=== PATIENT | male | born 1970 | race Caucasian/White ===

== ENCOUNTER 2016-06-15 07:23 | Emergency (ER) | payer OTHER ==
[2016-06-15] MEDS ORDERED: LIDOCAINE 1% INJ-PF (10 MG/ML) 30 ML SDV INJ ONE (07:58)
[2016-06-15] MEDS ORDERED: MORPHINE SULFATE 10 MG/ML INJ IM ONE (08:23)
--- NOTE | 2016-06-15 08:25 | ER Document Report ---
ED General - General Chief Complaint: Abscess Stated Complaint: BODY PAIN Mode of Arrival: Ambulatory Information source: Patient Notes: 45-year-old male presents with abscess of one week duration on his back associated with fever and body aches. Patient has had similar episode once in the past. TRAVEL OUTSIDE OF THE [place] IN LAST 30 DAYS: No - HPI Onset: Last week Onset/Duration: Persistent Quality of pain: Achy Severity: Mild Pain Level: 1 Associated symptoms: Body/muscle aches, Fever Exacerbated by: Denies Relieved by: Denies Similar symptoms previously: Yes Recently seen / treated by doctor: No - Related Data Allergies/Adverse Reactions: No Known Allergies Allergy (Verified 06/15/16 07:33) Past Medical History - Social History Smoking Status: Never Smoker Cigarette use (# per day): No Chew tobacco use (# tins/day): No Smoking Education Provided: No Frequency of alcohol use: None Drug Abuse: None Family History: Reviewed & Not Pertinent Patient has suicidal ideation: No Patient has homicidal ideation: No Endocrine Medical History: Reports: Hx Diabetes Mellitus Type 2 Renal/ Medical History: Denies: Hx Peritoneal Dialysis Skin Medical History: Reports Hx MRSA - Back Infectious Medical History: Reports: Hx MRSA - (Back) Review of Systems - Review of Systems Notes: REVIEW OF SYSTEMS: CONSTITUTIONAL : Denies fever, chills, or sweats. Denies recent illness. EENT: Denies eye, ear, throat, or mouth pain or symptoms. Denies nasal or sinus congestion or discharge. Denies throat, tongue, or mouth swelling or difficulty swallowing. CARDIOVASCULAR: Denies chest pain. Denies palpitations or racing or irregular heart beat. Denies ankle edema. RESPIRATORY: Denies cough, cold, or chest congestion. Denies shortness of breath, difficulty breathing, or wheezing. GASTROINTESTINAL: Denies abdominal pain or distention. Denies nausea, vomiting , or diarrhea. Denies blood in vomitus, stools, or per rectum. Denies black, tarry stools. Denies constipation. GENITOURINARY: Denies difficulty urinating, painful urination, burning, frequency, blood in urine, or discharge. MUSCULOSKELETAL: Denies back or neck pain or stiffness. Denies joint pain or swelling. SKIN: Admits to abscess HEMATOLOGIC : Denies easy bruising or bleeding. LYMPHATIC: Denies swollen, enlarged glands. NEUROLOGICAL: Denies confusion or altered mental status. Denies passing out or loss of consciousness. Denies dizziness or lightheadedness. Denies headache. Denies weakness or paralysis or loss of use of either side. Denies problems with gait or speech. Denies sensory loss, numbness, or tingling. Denies seizures. PSYCHIATRIC: Denies anxiety or stress. Denies depression, suicidal ideation, or homicidal ideation. ALL OTHER SYSTEMS REVIEWED AND NEGATIVE. Dictation was performed using [employer] voice recognition software PHYSICAL EXAMINATION: GENERAL: Well-appearing, well-nourished and in no acute distress. HEAD: Atraumatic, normocephalic. EYES: Pupils equal round and reactive to light, extraocular movements intact, sclera anicteric, conjunctiva are normal. ENT: Nares patent, oropharynx clear without exudates. Moist mucous membranes. NECK: Normal range of motion, supple without lymphadenopathy LUNGS: Breath sounds clear to auscultation bilaterally and equal. No wheezes rales or rhonchi. HEART: Regular rate and rhythm without murmurs ABDOMEN: Soft, nontender, nondistended abdomen. No guarding, no rebound. No masses appreciated. Musculoskeletal: Normal range of motion, no pitting or edema. No cyanosis. NEUROLOGICAL: Cranial nerves grossly intact. Normal speech, normal gait. Normal sensory, motor exams PSYCH: Normal mood, normal affect. SKIN: 9 x 8 cm abscess midback fluctuant pustular Physical Exam - Vital signs Vitals: Temp Pulse Resp BP Pulse Ox 97.5 F 108 H 20 126/91 H 100 06/15/16 07:29 06/15/16 07:29 06/15/16 07:29 06/15/16 07:29 06/15/16 07:29 Course - Re-evaluation Re-evalutation: 06/15/16 08:25 Patient will be given pain control will be anesthetized incised I expect large amount of pus drainage 06/15/16 09:42 - Vital Signs Vital signs: Temp Pulse Resp BP Pulse Ox 97.5 F 108 H 20 126/91 H 100 06/15/16 07:29 06/15/16 07:29 06/15/16 07:29 06/15/16 07:29 06/15/16 07:29 Procedures - Incision and Drainage Posterior Back Time completed: 09:40 Type: Complex Anesthetic type: 1% Lidocaine mL's of anesthetic: 10 Blade size: 11 Incision Method: Incision made by scalpel Amount/type of drainage: large amount of pus Discharge - Discharge Clinical Impression: Abscess Back pain Qualifiers: Back pain location: low back pain Chronicity: acute Back pain laterality: midline Sciatica presence: without sciatica Qualified Code(s): M54.5 - Low back pain Condition: Stable Disposition: HOME, SELF-CARE Instructions: Abscess ([facility]) Additional Instructions: Return in 3 days for reevaluation or abscess or sooner if there is any worsening symptoms or concerns Prescriptions: Cephalexin Monohydrate [Keflex 500 mg Capsule] 500 mg PO QID #40 capsule Oxycodone HCl/Acetaminophen [Percocet 5-325 mg Tablet] 1 - 2 tab PO Q4H PRN #15 tablet PRN Reason: Sulfamethoxazole/Trimethoprim [Bactrim Ds Tablet] 2 each PO BID #40 tablet
[2016-06-15 10:16] VITALS: BP 118/79
== END 2016-06-15 10:00 | disposition home or self-care (01) ==
LOC: ER 07:23
PROC: 0H96XZZ Drainage of Back Skin, External Approach (ICD-10-PCS; principal; 2016-06-15)
DX: L02.212 Cutaneous abscess of back [any part, except buttock and flank] (principal); M79.1 Myalgia; R50.9 Fever, unspecified; E11.9 Type 2 diabetes mellitus without complications; Z86.14 Personal history of Methicillin resistant Staphylococcus aureus infection
CPT/HCPCS: 99283; 96372; 10061; J2270

== ENCOUNTER 2016-06-18 16:33 | Emergency (ER) | payer OTHER ==
--- NOTE | 2016-06-18 18:46 | ER Document Report ---
ED Medical Screen (RME) - General Stated Complaint: RECHECK BACK PACKING Notes: seen on june 15 for abscess, here for recheck taking abx as prescribed, pain under control denies fevers, chills dressing CDI, underneath the dressing, site is erythematous with drainage and odor. Will need irrigaton and repacking I have greeted and performed a rapid initial assessment of this patient. A comprehensive ED assessment and evaluation of the patient, analysis of test results and completion of the medical decision making process will be conducted by additional ED providers. TRAVEL OUTSIDE OF THE [place] IN LAST 30 DAYS: No - Related Data Allergies/Adverse Reactions: No Known Allergies Allergy (Verified 06/15/16 07:33) Past Medical History Endocrine Medical History: Reports: Hx Diabetes Mellitus Type 2 Renal/ Medical History: Denies: Hx Peritoneal Dialysis Skin Medical History: Reports Hx MRSA - Back Infectious Medical History: Reports: Hx MRSA - (Back) Past Surgical History: Reports: Hx Cholecystectomy - Immunizations Hx Diphtheria, Pertussis, Tetanus Vaccination: Yes Physical Exam - Vital signs Vitals: Temp Pulse Resp BP Pulse Ox 98.2 F 100 14 120/74 100 06/18/16 17:25 06/18/16 17:25 06/18/16 17:25 06/18/16 17:25 06/18/16 17:25 Course - Vital Signs Vital signs: Temp Pulse Resp BP Pulse Ox 98.2 F 100 14 120/74 100 06/18/16 17:25 06/18/16 17:25 06/18/16 17:25 06/18/16 17:25 06/18/16 17:25
--- NOTE | 2016-06-18 19:55 | ER Document Report ---
HPI - HPI Patient complains to provider of: wound recheck Onset: Other - 3 days ago Onset/Duration: Better Quality of pain: Achy Pain Level: Denies Context: Patient states he had an abscess to his back for over 2 weeks and had an incision and drainage 3 days ago. Patient is here to have the wound rechecked and have packing removed. Patient denies any fever. Patient states that his blood sugar at home today was 108. Patient states that his pain has resolved except for whenever he lies on his back and the abscess is slightly tender then. Associated Symptoms: Other - Wound recheck Exacerbated by: Supine Relieved by: Sitting Similar symptoms previously: Yes Recently seen / treated by doctor: Yes - ROS ROS below otherwise negative: Yes Systems Reviewed and Negative: Yes All other systems reviewed and negative - CONSTITUTIONAL Constitutional: DENIES: Fever, Chills - NEURO Neurology: DENIES: Weakness - GASTROINTESTINAL Gastrointestinal: DENIES: Nausea, Patient vomiting - DERM Skin Color: Normal Notes: Abscess Past Medical History - General Information source: Patient - Social History Smoking Status: Never Smoker Chew tobacco use (# tins/day): No Frequency of alcohol use: None Drug Abuse: None Occupation: retail Lives with: Alone Family History: Reviewed & Not Pertinent Patient has suicidal ideation: No Patient has homicidal ideation: No Endocrine Medical History: Reports: Hx Diabetes Mellitus Type 2 Renal/ Medical History: Denies: Hx Peritoneal Dialysis Skin Medical History: Reports Hx MRSA - Back Infectious Medical History: Reports: Hx MRSA - (Back) Past Surgical History: Reports: Hx Cholecystectomy - Immunizations Hx Diphtheria, Pertussis, Tetanus Vaccination: Yes Vertical Provider Document - CONSTITUTIONAL Agree With Documented VS: Yes Exam Limitations: No Limitations General Appearance: WD/WN, No Apparent Distress - INFECTION CONTROL TRAVEL OUTSIDE OF THE [place] IN LAST 30 DAYS: No - HEENT HEENT: Atraumatic, Normocephalic - NECK Neck: Normal Inspection - RESPIRATORY Respiratory: Breath Sounds Normal, No Respiratory Distress O2 Sat by Pulse Oximetry: 100 - CARDIOVASCULAR Cardiovascular: Regular Rate, Regular Rhythm - MUSCULOSKELETAL/EXTREMETIES Musculoskeletal/Extremeties: MAEW - NEURO Level of Consciousness: Awake, Alert, Appropriate - DERM Integumentary: Warm, Dry, Abscess - Resolving abscess to right thoracolumbar area, area nontender Course - Re-evaluation Re-evalutation: 06/18/16 19:54 Packing removed from abscess. Patient reports immediate pain relief. Abscess appears to be resolving, no purulent drainage noted to wound bed - Vital Signs Vital signs: Temp Pulse Resp BP Pulse Ox 98.2 F 100 14 120/74 100 06/18/16 17:25 06/18/16 17:25 06/18/16 17:25 06/18/16 17:25 06/18/16 17:25 Discharge - Discharge Clinical Impression: Abscess, Encounter for wound re-check Condition: Stable Disposition: HOME, SELF-CARE Instructions: Abscess ([facility]), Dressing Instructions for Open Wounds ([facility]), Trimethoprim-Sulfa ([facility]), Cephalexin ([facility]) Additional Instructions: Return immediately for any new or worsening symptoms Followup with your primary care provider, call tomorrow to make a followup appointment Continue to take her antibiotics as previously prescribed Keep wound covered as it continues to heal Referrals: [facility] [Provider Group] - Follow up as needed
[2016-06-18 20:39] VITALS: BP 118/81
== END 2016-06-18 20:40 | disposition home or self-care (01) ==
LOC: ER 16:33
DX: Z48.01 Encounter for change or removal of surgical wound dressing (principal); L02.212 Cutaneous abscess of back [any part, except buttock and flank]; E11.9 Type 2 diabetes mellitus without complications; Z86.14 Personal history of Methicillin resistant Staphylococcus aureus infection
CPT/HCPCS: 99283

== ENCOUNTER 2017-10-08 09:29 | Inpatient (IN) | payer SELFPAY ==
[2017-10-08] MEDS ORDERED: SILVER SULFADIAZINE 1% CREAM 400 GM TP ONE (09:48)
--- NOTE | 2017-10-08 09:53 | ER Document Report ---
ED Medical Screen (RME) - General Chief Complaint: Sunburn Stated Complaint: SUNBURN TO LEGS/FEET/FACE Time Seen by Provider: 10/08/17 09:37 Mode of Arrival: Ambulatory Information source: Patient Notes: 46-year-old male presents to ED for second-degree sunburns to bilateral leg since Saturday. Patient has a large weeping blister on his left foot and several small weeping blisters to both legs. He also has stage I sunburn to his face. It is a type II diabetic. He has no sensation no pain to the sunburn is able to slap the sunburn. He does have some mild peripheral neuropathy in the feet but states he has never been able to smack his feet like this when he sunburn. He states he usually blood sugar runs between 180-200 but it has been over 300 in the past but that was after eating a breakfast of eggs and toast sausage and cade. He states he has not eaten anything since last night. I consulted Dr. Erwin who stated that this patient needs to be already made given IV fluids run some labs and reevaluated. I have greeted and performed a rapid initial assessment of this patient. A comprehensive ED assessment and evaluation of the patient, analysis of test results and completion of medical decision making process will be conducted by an additional ED providers. TRAVEL OUTSIDE OF THE [place] IN LAST 30 DAYS: No - Related Data Allergies/Adverse Reactions: No Known Allergies Allergy (Verified 10/08/17 09:29) Past Medical History - Social History Frequency of alcohol use: None Drug Abuse: None Endocrine Medical History: Reports: Hx Diabetes Mellitus Type 2 Renal/ Medical History: Denies: Hx Peritoneal Dialysis Skin Medical History: Reports Hx MRSA - Back Infectious Medical History: Reports: Hx MRSA - (Back) Past Surgical History: Reports: Hx Cholecystectomy - Immunizations Hx Diphtheria, Pertussis, Tetanus Vaccination: Yes Physical Exam - Vital signs Vitals: Temp Pulse Resp BP Pulse Ox 98.5 F 101 H 17 129/84 H 100 10/08/17 09:32 10/08/17 09:32 10/08/17 09:32 10/08/17 09:32 10/08/17 09:32 Course - Vital Signs Vital signs: Temp Pulse Resp BP Pulse Ox 98.5 F 101 H 17 129/84 H 100 10/08/17 09:32 10/08/17 09:32 10/08/17 09:32 10/08/17 09:32 10/08/17 09:32
[2017-10-08] MEDS: NORMAL SALINE 1000 ML 1,000 ML IV PRN ×4 (10:01→22:24)
[2017-10-08] MEDS ORDERED: INSULIN REG, HUMAN 100 UNIT/ML 3 ML VIAL (PYX) SUBCUT ONE (10:04)
--- NOTE | 2017-10-08 10:10 | ER Document Report ---
ED General - General Chief Complaint: Sunburn Stated Complaint: SUNBURN TO LEGS/FEET/FACE Time Seen by Provider: 10/08/17 09:37 Mode of Arrival: Ambulatory Notes: Chief complaint: Sunburn History of complain:( obtained from----patient) 46 years old male presents today with sunburn happened 3 days ago. He was sitting outside in the sun for about 5 hours now has sunburn all the way from the lower part of the thigh to the toe. Denies any fever chills or other constitutional symptoms. He is diabetic taking metformin Onset: 3 days ago Duration: Last few days Severity: Severe burn Quality: Burning Context: Sunburn sun exposure Exacerbating factor and relieving factors: Noncontributory REVIEW OF SYSTEMS: CONSTITUTIONAL : Denies fever, chills, or sweats. Denies recent illness. EENT: Denies eye, ear, throat, or mouth pain or symptoms. Denies nasal or sinus congestion or discharge. Denies throat, tongue, or mouth swelling or difficulty swallowing. CARDIOVASCULAR: Denies chest pain. Denies palpitations or racing or irregular heart beat. Denies ankle edema. RESPIRATORY: Denies cough, cold, or chest congestion. Denies shortness of breath, difficulty breathing, or wheezing. GASTROINTESTINAL: Denies distention. Denies nausea, vomiting, or diarrhea. Denies blood in vomitus, stools, or per rectum. Denies black, tarry stools. Denies constipation. GENITOURINARY: Denies difficulty urinating, painful urination, burning, frequency, blood in urine, or discharge. FEMALE GENITOURINARY: Denies vaginal bleeding, heavy or abnormal periods, irregular periods. Denies vaginal discharge or odor. MUSCULOSKELETAL: Denies back or neck pain or stiffness. Denies joint pain or swelling. SKIN: Denies rash, lesions or sores. HEMATOLOGIC : Denies easy bruising or bleeding. LYMPHATIC: Denies swollen, enlarged glands. NEUROLOGICAL: Denies confusion or altered mental status. Denies passing out or loss of consciousness. Denies dizziness or lightheadedness. Denies headache. Denies weakness or paralysis or loss of use of either side. Denies problems with gait or speech. Denies sensory loss, numbness, or tingling. Denies seizures. PSYCHIATRIC: Denies anxiety or stress. Denies depression, suicidal ideation, or homicidal ideation. ALL OTHER SYSTEMS REVIEWED AND NEGATIVE. PHYSICAL EXAMINATION: GENERAL: Well-appearing, well-nourished and in no acute distress. HEAD: Atraumatic, normocephalic. EYES: Pupils equal round and reactive to light, extraocular movements intact, conjunctiva are normal. ENT: Nares patent, oropharynx clear without exudates. Moist mucous membranes. NECK: Normal range of motion, supple without lymphadenopathy LUNGS: Breath sounds clear to auscultation bilaterally and equal. No wheezes rales or rhonchi. HEART: Regular rate and rhythm without murmurs ABDOMEN: Soft, nontender, nondistended abdomen. No guarding, no rebound. No masses appreciated. Examination of genitals-deferred Musculoskeletal: Normal range of motion, no pitting or edema. No cyanosis. NEUROLOGICAL: Cranial nerves grossly intact. Normal speech, normal gait. Normal sensory, motor exams PSYCH: Normal mood, normal affect. SKIN: Skin starting from shorts nathanael to all the way to the toes has diffuse erythema which is deep in color, it is warm and tender to touch. Left foot on the extensor surface has peeling of the skin with second-degree burn noted. Rest of first-degree soriano. Dictation was performed using [employer] voice recognition software TRAVEL OUTSIDE OF THE [place] IN LAST 30 DAYS: No - HPI Patient complains to provider of: Dictated Onset/Duration: Gradual Severity: Moderate Notes: Dictated - Related Data Allergies/Adverse Reactions: No Known Allergies Allergy (Verified 10/08/17 09:29) Past Medical History - General Information source: Patient - Social History Smoking Status: Never Smoker Frequency of alcohol use: None Drug Abuse: None Family History: Reviewed & Not Pertinent Patient has suicidal ideation: No Patient has homicidal ideation: No Endocrine Medical History: Reports: Hx Diabetes Mellitus Type 2 Renal/ Medical History: Denies: Hx Peritoneal Dialysis Skin Medical History: Reports Hx MRSA - Back Infectious Medical History: Reports: Hx MRSA - (Back) Past Surgical History: Reports: Hx Cholecystectomy - Immunizations Hx Diphtheria, Pertussis, Tetanus Vaccination: Yes Review of Systems - Review of Systems Notes: Dictated Physical Exam - Vital signs Vitals: Temp Pulse Resp BP Pulse Ox 98.5 F 101 H 17 129/84 H 100 10/08/17 09:32 10/08/17 09:32 10/08/17 09:32 10/08/17 09:32 10/08/17 09:32 - Notes Notes: Dictated Course - Re-evaluation Re-evalutation: 10/08/17 11:44 Given Ancef and discussed the case with the hospitalist and being admitted to the hospital. - Vital Signs Vital signs: Temp Pulse Resp BP Pulse Ox 98.5 F 101 H 17 129/84 H 100 10/08/17 09:32 10/08/17 09:32 10/08/17 09:32 10/08/17 09:32 10/08/17 09:32 - Laboratory Result Diagrams: 10/08/17 10:15 10/08/17 10:15 Laboratory results interpreted by me: 10/08/17 10/08/17 10/08/17 09:45 10:15 10:15 WBC 3.7 L Plt Count 144 L Glucose 319 H POC Glucose 345 H AST 16 L Urine Protein Urine Glucose (UA) Urine Blood 10/08/17 10:15 WBC Plt Count Glucose POC Glucose AST Urine Protein 30 H Urine Glucose (UA) >=500 H Urine Blood SMALL H Discharge - Discharge Clinical Impression: Cellulitis Qualifiers: Site of cellulitis: extremity Site of cellulitis of extremity: lower extremity Laterality: left Qualified Code(s): L03.116 - Cellulitis of left lower limb Uncontrolled diabetes mellitus Qualifiers: Diabetes mellitus type: type 2 Diabetes mellitus penitentiary insulin use: without penitentiary use Diabetes mellitus complication status: with unspecified complications Qualified Code(s): E11.8 - Type 2 diabetes mellitus with unspecified complications; E11.65 - Type 2 diabetes mellitus with hyperglycemia ; E11.65 - Type 2 diabetes mellitus with hyperglycemia; E11.65 - Type 2 diabetes mellitus with hyperglycemia; E11.65 - Type 2 diabetes mellitus with hyperglycemia Condition: Fair Disposition: ADMITTED INPATIENT Admitting Provider: Hospitalist Unit Admitted: Telemetry Referrals: POLLY KUO MD [Primary Care Provider] - Follow up as needed
[2017-10-08 10:33] LABS: ABSOLUTE EOSINOPHILS # (AUTO) 0.1 10^3/uL (0.0-0.6); ABSOLUTE LYMPHOCYTES (AUTO) 1.1 10^3/uL (0.5-4.7); ABSOLUTE MONOCYTES (AUTO) 0.4 10^3/uL (0.1-1.4); BASOPHILS % (AUTO) 0.6 % (0-2); EOSINOPHILS % (AUTO) 3.1 % (0-6); HEMATOCRIT 41.2 % (37.9-51.0); HEMOGLOBIN 14.2 g/dL (13.5-17.0); LYMPHOCYTES % (AUTO) 31.2 % (13-45); MEAN CORPUSCULAR HEMOGLOBIN 28.1 pg (27.0-33.4); MEAN CORPUSCULAR HGB CONC 34.6 g/dL (32.0-36.0); MEAN CORPUSCULAR VOLUME 81 fl (80-97); PLATELET COUNT 144 10^3/uL (150-450); RED BLOOD COUNT 5.07 10^6/uL (4.35-5.55); RED CELL DISTRIBUTION WIDTH 13.1 % (11.5-14.0); SEGMENTED NEUTROPHILS % (AUTO) 55.1 % (42-78); TOTAL CELLS COUNTED % (AUTO) 100 %; VENOUS BLOOD BASE EXCESS -0.2 mmol/L; VENOUS BLOOD HCO3 25.6 mmol/L (20-32); VENOUS BLOOD PCO2 46.1 mmHg (35-63); VENOUS BLOOD PH 7.36 (7.30-7.42); WHITE BLOOD COUNT 3.7 10^3/uL (4.0-10.5)
[2017-10-08 10:50] LABS: ALANINE AMINOTRANSFERASE 36 U/L (21-72); ALBUMIN 3.9 g/dL (3.5-5.0); ALKALINE PHOSPHATASE 61 U/L (38-126); ANION GAP 10 (5-19); ASPARTATE AMINO TRANSFERASE 16 U/L (17-59); BILIRUBIN,DIRECT 0.3 mg/dL (0.0-0.4); BILIRUBIN,TOTAL 0.7 mg/dL (0.2-1.3); BLOOD UREA NITROGEN 12 mg/dL (7-20); CALCIUM 9.1 mg/dL (8.4-10.2); CARBON DIOXIDE 26 mmol/L (22-30); CHLORIDE 104 mmol/L (98-107); GLUCOSE 319 mg/dL (75-110); POTASSIUM 4.4 mmol/L (3.6-5.0); SODIUM 140.4 mmol/L (137-145); TOTAL PROTEIN 6.5 g/dL (6.3-8.2)
[2017-10-08 10:57] LABS: APPEARANCE,URINE CLEAR; BILIRUBIN,URINE NEGATIVE (NEGATIVE); COLOR,URINE YELLOW; GLUCOSE, URINE >=500 mg/dL (NEGATIVE); KETONES,URINE NEGATIVE (NEGATIVE); LEUKOCYTE ESTERASE,URINE NEGATIVE (NEGATIVE); NITRITE,URINE NEGATIVE (NEGATIVE); PROTEIN,URINE 30 mg/dL (NEGATIVE); URINE SPECIFIC GRAVITY 1.028; UROBILINOGEN,URINE NEGATIVE mg/dL (<2.0)
[2017-10-08] MEDS ORDERED: CEFAZOLIN 2 GM/D5W RTU 2 GM/50 ML RTUPB IV SCH (12:00)
[2017-10-08] MEDS ORDERED: GLUCAGON,HUMAN RECOMB 1 MG INJ IM PRN (12:52)
[2017-10-08] MEDS ORDERED: DEXTROSE 40% GEL 15 GM TUBE PO PRN ×2 (12:52)
[2017-10-08] MEDS ORDERED: DEXTROSE 50%-WATER 25 GM/50 ML DISP.SYRIN IV PRN ×2 (12:52)
[2017-10-08] MEDS ORDERED: ENOXAPARIN SODIUM INJ 40 MG/0.4 ML DISP.SYRIN SUBCUT ONE (13:30)
[2017-10-08] MEDS: INSULIN LISPRO 100 UNIT/ML 3 ML VIAL SUBCUT PRN ×2 (16:21→22:23)
[2017-10-08] MEDS: AMPICILLIN SODIUM/SULBACTAM NA 3 GM in NORMAL SALINE 100 ML IV SCH ×2 (17:41→23:08)
[2017-10-08] MEDS: ACETAMINOPHEN 325 MG TABLET PO PRN (17:50)
[2017-10-08] MEDS: KETOROLAC TROMETHAMINE INJ/PF 30 MG/1 ML SDV IV SCH ×2 (18:40→23:05)
--- NOTE | 2017-10-08 20:25 | HISTORY AND PHYSICAL E ---
History and Physical NAME: ALYSHA DOCKERY : 1970 AGE: 46Y ADMITTED: 10/08/2017 ROOM: 529 [facility]IMARY CARE PROVIDER: [facility] CHIEF COMPLAINT: Sunburn. HISTORY OF PRESENT ILLNESS: The patient is a 46-year-old male with a past medical history of poorly controlled diabetes. The patient presented to the emergency department with a chief complaint of soriano of his bilateral lower extremities. According to the patient he went to the beach on Saturday and chose not to wear sunscreen. The patient stated that he was in the direct sun for about 5 hours. The patient describes himself as fair complected and, therefore, developed large weeping blisters on his left foot and several small weeping blisters to both legs. The patient appeared to have a stage I sunburn on his face but appeared to have areas of second degree soriano to his lower legs. The patient had no sensation, no pain to the sunburn, and was actually able to slap the sunburn. 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 The patient states that his blood sugars have been "descent." However, he has recently been changed medications over at [facility], which appears to be metformin. The patient states that he had not eaten anything since the night before, however, his blood sugar was found to be 345. Given these findings the patient has been referred to the hospital for admission and management. Upon my assessment the patient does appear to have eczema across his face as well as some light sunburn across his nose. The patient's legs do have weeping with blisters and some yellow exudate that is noted. No areas that are overtly denuded. The patient does appear to need IV antibiotic coverage. PAST MEDICAL HISTORY: 1. Diabetes mellitus type 2. 2. Eczema. 3. Also suspect hypertension. 4. MRSA. PAST SURGICAL HISTORY: Cholecystectomy. ALLERGIES: No known drug allergies. HOME MEDICATIONS: 1. Metformin XL 500 mg p.o. daily. 2. Atarax 25 mg p.o. q. hour of sleep. SOCIAL HISTORY: The patient currently resides at home with his , Bree, who is also his surrogate decision maker. She can be reached at [phone]. 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 Additionally, the patient denies any history of tobacco use. No history of alcohol or illicit drug use. FAMILY MEDICAL HISTORY: Positive for diabetes in both parents. His dad did have coronary disease. The patient does have siblings who are healthy. The patient does have children as well that are healthy. REVIEW OF SYSTEMS: CONSTITUTIONAL: The patient denies any fevers, chills. No dizziness, weakness, loss of appetite. INTEGUMENTARY: The patient denies any diaphoresis, rashes, bruising, itching. HEENT: Denies any vision change, hearing loss, nasal drainage, or sore throat. No headache. CARDIOVASCULAR: The patient denies any chest pain, edema, heart palpitations. RESPIRATORY: Denies any cough, sputum production, or hemoptysis. GASTROINTESTINAL: Denies any nausea, vomiting, diarrhea, abdominal pain, bloody hematemesis, constipation, melena, or hematochezia. GENITOURINARY: Denies any hematuria, polyuria, or dysuria. MUSCULOSKELETAL: Denies any acute or chronic joint pain. NEUROLOGIC: No seizures, tremors, or loss of consciousness. HEMATOLOGIC: Denies any jami bleeding, easy bruising. ENDOCRINE: Denies any recent weight changes. PSYCHIATRIC: Denies any suicidal or homicidal ideations. PHYSICAL EXAMINATION: GENERAL: On examination the patient is a well-developed, well-nourished, 46-year-old male who is awake, alert, and oriented to person, place, time, and situation. He is verbal, conversational, ambulatory, does not appear to be distressed. VITAL SIGNS: Temperature 97.4, pulse 93, respirations 16, blood pressure 143/82, oxygen saturation is 100% on room air. SKIN: Warm, dry; no rash. The patient's lower extremities from the knees down are reddened with random areas of blistering noted. The patient does have some weeping on the top part of his left foot with some exudate. HEENT: Pupils equal, round reactive to light and accommodation. Conjunctivae are pink. Sclerae are nonicteric. There are no mouth lesions. Tongue is midline. NECK: Supple. No JVD. No palpable lymphadenopathy or thyromegaly. CARDIOVASCULAR: Heart is regular. There is no murmur or rub. CHEST: Clear, symmetrical, unlabored. ABDOMEN: Soft, nontender, nondistended. Bowel sounds are present. No palpable organomegaly. BACK: No CVA tenderness or sacral edema. EXTREMITIES: No clubbing, cyanosis. The patient's bilateral lower extremities greer have dependent edema with no peripheral signs of embolization. PSYCHIATRIC: Appropriate affect, pleasant mood. DIAGNOSTICS: Lab values are as follows: Hematology obtained on 10/08/2017; WBC 3.7, hemoglobin is 14.2, hematocrit is 41.2, platelet count is 155,000. Venous blood gas obtained on 10/08/2017; pH of 7.36, pCO2 is 46.1, bicarb is 25.6. Chemistry obtained on 10/08/2017; sodium is 140, potassium 4.4, chloride 104, carbon dioxide 26, BUN 12, creatinine is 0.71, glucose 319, calcium is 9.1, bilirubin is 0.7, AST 16, ALT is 36, alk-phos 51, total protein 6.5, albumin 3.9. Urinalysis obtained on 10/08/2017; color yellow, appearance clear, pH is 5.0, specific gravity 1.028, protein 30, glucose 500, ketones small, nitrite negative, BILI negative, urobilinogen is negative, leukocyte esterase is negative, WBC zero, RBC 1. Microbiology: Blood cultures obtained on 10/08/2017 are pending. IMPRESSION AND PLAN: 1. Bilateral lower extremity cellulitis. This is a little bit complicated given the patient's burn. Will apply Silvadene at this time. Will cover the patient with Unasyn for now, however, the patient has a remote history in the past of MRSA. If the patient does not make significant improvement may possibly consider adding on vancomycin, but will defer for now as the patient already feels a little better. 2. Diabetes mellitus type 2. The patient's glucose does appear to have poor control. Will hydrate the patient this evening and will resume the patient's medications, add sliding scale coverage accordingly. The patient most likely is going to require more metformin. However, will hydrate first and try to get this infection under control. 3. Eczema. The patient does have some dryness. Again, he can use Silvadene on the burn area on his nose and this can be followed on an outpatient basis. CODE STATUS: The patient is a full code. DISPOSITION: Depending on the patient's symptomatology and diagnostic findings will reevaluate in the a.m. Will admit the patient to inpatient medical as the patient's length of stay will surpass 2 midnights given the patient's need for IV antibiotics. TIME SPENT: On this admission, including assessment, plan, physical examination, patient education, review of records is 45 minutes. DICTATING PHYSICIAN: JACOBY BLAIR NP [id number] PHY#: [id number] [id number] JOB#: [id number] ACCT: [id number] cc:RAMBO PARSON M.D. > LUIS
[2017-10-08] MEDS ORDERED: HYDROXYZINE HCL 10 MG TABLET PO SCH (22:00)
[2017-10-08] MEDS ORDERED: (PENDING PHARMACY ID) (Hydroxyzine Hcl [Atarax 25 Mg Tablet] 25 MG) PO SCH (22:00)
[2017-10-09] MEDS: KETOROLAC TROMETHAMINE INJ/PF 30 MG/1 ML SDV IV SCH ×3 (05:05→17:10)
[2017-10-09] MEDS: AMPICILLIN SODIUM/SULBACTAM NA 3 GM in NORMAL SALINE 100 ML IV SCH ×3 (05:08→17:09)
[2017-10-09] MEDS: INSULIN LISPRO 100 UNIT/ML 3 ML VIAL SUBCUT PRN ×2 (07:38→11:31)
[2017-10-09] MEDS: METFORMIN HCL 500 MG TABLET PO SCH (10:15)
[2017-10-09] MEDS: ENOXAPARIN SODIUM INJ 40 MG/0.4 ML DISP.SYRIN SUBCUT SCH (10:16)
[2017-10-09] MEDS: NORMAL SALINE 1000 ML 1,000 ML IV PRN (11:31)
[2017-10-09] MEDS: ACETAMINOPHEN 325 MG TABLET PO PRN ×2 (17:03→21:18)
--- NOTE | 2017-10-09 17:27 | PDOC PROGRESS REPORT ---
Subjective Progress Note for:: 10/09/17 Subjective:: No adverse events overnight. No new complaints. Vital signs been stable. He said he is actually not had a lot of pain from this burn, which is little concerning. He has noticed no exudates or drainage. His blisters have not been weeping and most of them have been crusted over now. Reason For Visit: CELLULITIS Physical Exam Vital Signs: Temp Pulse Resp BP Pulse Ox 98.3 F 86 15 126/75 H 98 10/09/17 00:30 10/09/17 00:30 10/09/17 00:30 10/09/17 00:30 10/09/17 00:30 Intake & Output 10/08/17 10/09/17 10/10/17 06:59 06:59 06:59 Intake Total 1510 844 Output Total 400 Balance 1110 844 Weight 94.9 kg General appearance: PRESENT: no acute distress, well-developed, well-nourished Respiratory exam: PRESENT: clear to auscultation mikaela. ABSENT: rales, rhonchi, wheezes Cardiovascular exam: PRESENT: RRR. ABSENT: diastolic murmur, rubs, systolic murmur Vascular exam: PRESENT: normal capillary refill GI/Abdominal exam: PRESENT: normal bowel sounds, soft. ABSENT: distended, guarding, mass, organolmegaly, rebound, tenderness Extremities exam: ABSENT: clubbing, pedal edema Skin exam: PRESENT: other - It has been 4 days since the sunburn he still has a substantial amount of erythema from the soriano on his legs from just above the knees down to his feet. He has numerous blisters which have scabbed over. He has a large area on the dorsum of the left foot where he said his shoe rubbed the skin and the skin has been denuded in that area. It is covered in Silvadene cream, and there is no substantial erythema or drainage Assessment & Plan - Diagnosis (1) Second degree sunburn Is this a current diagnosis for this admission?: Yes Plan: Supportive care. We had a long talk about sunscreens and barrier methods for being exposed to the sun for long periods of time. He has Silvadene on the left foot, but I am not entirely certain that it was infected. He has been started on antibiotics, will have the benefit of having seen it initially, so I am going to continue oral antibiotics on him for a short course after he leaves the hospital. If the foot looks okay tomorrow he will probably be able to go home at that time. (2) Uncontrolled diabetes mellitus Qualifiers: Diabetes mellitus type: type 2 Diabetes mellitus fdc insulin use: without fdc use Diabetes mellitus complication status: with unspecified complications Qualified Code(s): E11.8 - Type 2 diabetes mellitus with unspecified complications; E11.65 - Type 2 diabetes mellitus with hyperglycemia ; E11.65 - Type 2 diabetes mellitus with hyperglycemia; E11.65 - Type 2 diabetes mellitus with hyperglycemia; E11.65 - Type 2 diabetes mellitus with hyperglycemia Is this a current diagnosis for this admission?: Yes Plan: Insulin sliding scale and consistent carbohydrate diet - Time Time Spent with patient: 25-34 minutes Medications reviewed and adjusted accordingly: Yes
[2017-10-09] MEDS ORDERED: HYDROXYZINE PAMOATE 25 MG CAPSULE PO SCH (22:00)
[2017-10-10] MEDS: KETOROLAC TROMETHAMINE INJ/PF 30 MG/1 ML SDV IV SCH ×2 (01:03→05:52)
[2017-10-10] MEDS: AMPICILLIN SODIUM/SULBACTAM NA 3 GM in NORMAL SALINE 100 ML IV SCH ×2 (01:03→05:52)
[2017-10-10 09:31] VITALS: BP 142/78
[2017-10-10] MEDS: ENOXAPARIN SODIUM INJ 40 MG/0.4 ML DISP.SYRIN SUBCUT SCH (10:22)
[2017-10-10] MEDS: METFORMIN HCL 500 MG TABLET PO SCH (10:25)
--- NOTE | 2017-10-10 18:05 | PDOC DISCHARGE SUMMARY ---
General - Admit/Disc Date/PCP Admission Date/Primary Care Provider: 10/08/17 11:53 POLLY KUO MD Discharge Date: 10/10/17 - Discharge Diagnosis (1) Second degree sunburn Is this a current diagnosis for this admission?: Yes Summary: He was treated supportively. He was counseled regarding sun protection for future outings. He was advised to stay out of the sun until his sunburn has resolved completely. He was also given a few days of antibiotic to complete a course of treatment that have been started in the hospital for a large blister on the dorsum of his left foot. (2) Uncontrolled diabetes mellitus Is this a current diagnosis for this admission?: Yes Summary: He is just started taking metformin, and we talked extensively about diet and lifestyle modifications. - Additional Information Discharge Diet: Diabetic Discharge Activity: Activity As Tolerated, Balance Activity w/Rest Prescriptions: Amox Tr/Potassium Clavulanate [Augmentin 875-125 mg Tablet] 1 tab PO BID #10 tablet Home Medications: Hydroxyzine HCl [Atarax 25 mg Tablet] 25 mg PO QHS 10/08/17 Metformin HCl [Glucophage 500 mg Tablet] 500 mg PO DAILY 10/08/17 Amox Tr/Potassium Clavulanate [Augmentin 875-125 mg Tablet] 1 tab PO BID #10 tablet 10/10/17 History of Present Illness History of Present Illness: ALYSHA DOCKERY is a 46 year old male who spent several hours in the sun and did not put any sunscreen on his legs and suffered second-degree soriano to parts of his legs, especially his feet. The soriano were bad enough that they actually did not hurt anymore. He had one especially large area of denuded skin on the dorsum of his left foot which have been weeping clear fluid. Hospital Course Hospital Course: He was treated supportively here. His blisters that had been burst were washed with soap and water and he had some Silvadene cream put on the area of his left foot. Antibiotics have been started empirically on admission and while I doubt that the area was infected, I did get to see what looked like where he first came in and so I gave him a few more days of antibiotic to complete a short course at home. He was counseled extensively regarding of avoidance of the son until his soriano had completely healed and we talked about skin protection measures for future sun exposures. His labs and examination were reassuring and he was discharged today in good condition. Physical Exam Vital Signs: Temp Pulse Resp BP Pulse Ox 97.7 F 85 18 142/78 H 100 10/10/17 10:24 10/10/17 10:24 10/10/17 10:24 10/10/17 10:24 10/10/17 10:24 Intake & Output 10/09/17 10/10/17 10/11/17 06:59 06:59 06:59 Intake Total 1510 3840 Output Total 400 2700 Balance 1110 1140 Weight 94.9 kg 94.9 kg General appearance: PRESENT: no acute distress, well-developed, well-nourished Respiratory exam: PRESENT: clear to auscultation mikaela. ABSENT: rales, rhonchi, wheezes Cardiovascular exam: PRESENT: RRR. ABSENT: diastolic murmur, rubs, systolic murmur GI/Abdominal exam: PRESENT: normal bowel sounds, soft. ABSENT: distended, guarding, mass, organolmegaly, rebound, tenderness Extremities exam: ABSENT: clubbing, pedal edema Musculoskeletal exam: PRESENT: normal inspection. ABSENT: deformity Neurological exam: PRESENT: alert, awake, oriented to person, oriented to place , oriented to time Skin exam: PRESENT: other - He had evidence of first-degree sunburn over most of his lower extremities from just proximal to the knee all the way down to the foot, with evidence of second-degree soriano with blisters on areas of the medial aspect of the right leg as well as on the dorsum of the left foot. The area of the left foot was covered in Silvadene cream and was not exudative at this time and showed areas of new skin growing in with a couple of patchy areas of scab. Results Laboratory Results: Reviewed Qualifiers - * PATIENT BEING DISCHARGED WITH ANY OF THE FOLLOWING DIAGNOSIS: No
== END 2017-10-10 11:25 | disposition home or self-care (01) | DRG 607 ==
LOC: ER 09:29 → EH 11:53 → 5 16:47
PROVIDERS: ADMIT Internal Medicine; ATTEND Internal Medicine
DX: L55.1 Sunburn of second degree (principal); L03.116 Cellulitis of left lower limb; L03.115 Cellulitis of right lower limb; E11.65 Type 2 diabetes mellitus with hyperglycemia; L55.0 Sunburn of first degree; E11.42 Type 2 diabetes mellitus with diabetic polyneuropathy; L30.9 Dermatitis, unspecified; I10 Essential (primary) hypertension; Z79.899 Other long term (current) drug therapy; Z86.14 Personal history of Methicillin resistant Staphylococcus aureus infection; Z90.49 Acquired absence of other specified parts of digestive tract; Z83.3 Family history of diabetes mellitus; Z82.49 Family history of ischemic heart disease and other diseases of the circulatory system
CPT/HCPCS: 36415; 80053; 81001; 82803; 82962; 85025; 87040; 96361; 96365; 99284; J0295; J0690; J1815; J1885; J3490; J7030

== ENCOUNTER 2018-01-29 07:30 | Emergency (ER) | payer OTHER ==
[2018-01-29 07:37] VITALS: BP 128/80
--- NOTE | 2018-01-29 07:48 | ER Document Report ---
HPI - HPI Patient complains to provider of: severe rash Onset: Other - Several weeks Quality of pain: No pain Pain Level: 4 Context: 47 y0 male with severe dry skin rash for over a month. Hx eczema. Topical steroid not helping. Has not seen dermatoloist yet. Associated Symptoms: None Exacerbated by: Denies Relieved by: Denies Similar symptoms previously: Yes - never this bad Recently seen / treated by doctor: No - ROS ROS below otherwise negative: Yes Systems Reviewed and Negative: Yes All other systems reviewed and negative <FRANSICO MARIE - Last Filed: 01/30/18 18:16> - ROS Notes: Unless otherwise stated in this report the patient's positive and negative responses for review of systems for constitutional, eyes, ENT, cardiovascular, respiratory, gastrointestinal, neurological, genitourinary, musculoskeletal, and integumentary systems and related systems to the presenting problem are either as stated in the HPI or were not pertinent or were negative for the symptoms and/or complaints related to the presenting medical problem. <KELLY CONTRERAS - Last Filed: 02/02/18 08:47> Past Medical History - General Information source: Patient - Social History Smoking Status: Never Smoker Frequency of alcohol use: None Drug Abuse: None Lives with: Family Family History: Reviewed & Not Pertinent Patient has suicidal ideation: No Patient has homicidal ideation: No Endocrine Medical History: Reports: Hx Diabetes Mellitus Type 2 Renal/ Medical History: Denies: Hx Peritoneal Dialysis Skin Medical History: Reports Hx MRSA - Back Infectious Medical History: Reports: Hx MRSA - (Back) Past Surgical History: Reports: Hx Cholecystectomy - Immunizations Hx Diphtheria, Pertussis, Tetanus Vaccination: Yes <FRANSICO MARIE - Last Filed: 01/30/18 18:16> Vertical Provider Document - CONSTITUTIONAL Agree With Documented VS: Yes General Appearance: No Apparent Distress - INFECTION CONTROL TRAVEL OUTSIDE OF THE [place] IN LAST 30 DAYS: No - DERM Integumentary: Rash - exensive large areas of hyperkeratoic, plaque, scaling eczema trunk, less so on arms and legs <FRANSICO MARIE - Last Filed: 01/30/18 18:16> Course - Vital Signs Vital signs: Temp Pulse Resp BP Pulse Ox 97.8 F 107 H 14 128/80 H 100 01/29/18 07:35 01/29/18 07:35 01/29/18 07:35 01/29/18 07:35 01/29/18 07:35 <FRANSICO MARIE - Last Filed: 01/30/18 18:16> - Vital Signs Vital signs: Temp Pulse Resp BP Pulse Ox 97.8 F 107 H 14 128/80 H 100 01/29/18 07:35 01/29/18 07:35 01/29/18 07:35 01/29/18 07:35 01/29/18 07:35 <KELLY CONTRERAS - Last Filed: 02/02/18 08:47> Discharge <FRANSICO MARIE - Last Filed: 01/30/18 18:16> <KELLY CONTRERAS - Last Filed: 02/02/18 08:47> - Discharge Clinical Impression: Eczema Condition: Good Disposition: HOME, SELF-CARE Instructions: Atopic Dermatitis (Eczema) ([facility]), Steroid Medication Additional Instructions: Dove unscented soap, dye and scent free detergents When skin is still wet after the shower use Aquaphor ointment to cover all of the skin surfaces Prednisone taper for 1 week Call today and schedule an appointment with a fire prevention research engineer Prescriptions: Prednisone [Deltasone 10 mg Tablet] 10 mg PO ASDIR PRN #21 tablet PRN Reason: Forms: Return to Work Referrals: ALBERTO RETANA DO [ACTIVE STAFF] - Follow up in 1 week
[2018-01-29] MEDS ORDERED: PREDNISONE 20 MG TABLET PO ONE (07:58)
== END 2018-01-29 08:10 | disposition home or self-care (01) ==
LOC: ER 07:30
DX: L30.9 Dermatitis, unspecified (principal); E11.9 Type 2 diabetes mellitus without complications
CPT/HCPCS: 99282; J7512

== ENCOUNTER 2018-07-18 06:29 | Emergency (ER) | payer OTHER ==
[2018-07-18 06:38] VITALS: BP 129/76
--- NOTE | 2018-07-18 06:47 | ER Document Report ---
ED General - General Chief Complaint: Skin Problem Stated Complaint: BODY RASH Time Seen by Provider: 07/18/18 06:46 Primary Care Provider: POLLY KUO MD [Primary Care Provider] - Follow up as needed Notes: Patient is a 47-year-old male with history of eczema that presents to the emergency department for chief complaint of rash. Patient reports of the past 7 months he has been dealing with a diffuse rash over his body, has been worse since ever been. He did go to the [place], was prescribed different creams and lotions, without much relief of his symptoms. Has been itching all over and scratching constantly, and it has not been improving. He did get relief at one point when he was on steroids, but then it slowly came back over time. He has not specifically seen a instrument technician apprentice for this yet. He denies noting any fevers, chest pain, shortness of breath, difficulty breathing, he states he does notice that his legs are somewhat swollen, from all the scratching, but denies noting any redness associated with the swelling. He denies any associated pain with this, denies any joint aches or pains or muscle aches or pains. Past Medical History: Eczema Past Surgical History: Denies recent or pertinent surgical history Social History: Denies tobacco, alcohol or drug use. Family History: Reviewed and noncontributory for presenting illness Allergies: Reviewed, see documented allergy list. REVIEW OF SYSTEMS: Other than noted above, the 12 point review of systems was reviewed with the patient and were negative, all pertinent findings are included in the HPI. PHYSICAL EXAMINATION: Vital signs reviewed, nursing noted reviewed. GENERAL: Well-appearing, well-nourished and in no acute distress. HEAD: Atraumatic, normocephalic. EYES: Eyes appear normal, sclera anicteric, conjunctiva are normal. ENT: Moist mucous membranes. NECK: Normal range of motion, supple without lymphadenopathy LUNGS: Breath sounds clear to auscultation bilaterally and equal. No wheezes rales or rhonchi. HEART: Regular rate and rhythm without murmurs EXTREMITIES: Nontender, good range of motion, no pitting or edema. NEUROLOGICAL: No focal neurological deficits. Moves all extremities spontaneously Motor and sensory grossly intact on exam. PSYCH: Normal mood, normal affect. SKIN: Warm, Dry, normal turgor, patient is a diffuse atopic dermatitis, over the trunk, and over all 4 limbs. His skin is dry and flaking in many areas including the scalp as well. No signs of erythema, or areas of cellulitis or folliculitis. TRAVEL OUTSIDE OF THE [place] IN LAST 30 DAYS: No - Related Data Allergies/Adverse Reactions: No Known Allergies Allergy (Verified 01/29/18 07:31) Past Medical History - Social History Smoking Status: Never Smoker Family History: Reviewed & Not Pertinent Endocrine Medical History: Reports: Hx Diabetes Mellitus Type 2 Renal/ Medical History: Denies: Hx Peritoneal Dialysis Skin Medical History: Reports Hx MRSA - Back Psychiatric Medical History: Denies: Hx Depression Infectious Medical History: Reports: Hx MRSA - (Back) Past Surgical History: Reports: Hx Cholecystectomy - Immunizations Hx Diphtheria, Pertussis, Tetanus Vaccination: Yes Physical Exam - Vital signs Vitals: Temp Pulse Resp BP Pulse Ox 97.9 F 101 H 20 129/76 H 98 07/18/18 06:37 07/18/18 06:37 07/18/18 06:37 07/18/18 06:37 07/18/18 06:37 Course - Re-evaluation Re-evalutation: Patient seen and examined vital signs reviewed. Patient was evaluated and treated as appropriate for the patient's presenting symptoms and complaint, with consideration of any critical or life threatening conditions that may be associated with their obtained history and exam as noted above. Evaluation was most consistent with diffuse atopic dermatitis, will treat the patient with a prolonged steroid taper for a total of 20 days, advised [facility], as he may need systemic therapy to help with this in addition to topical lotions and creams. Plan of care was discussed with the patient at this point, after careful consideration I feel that that patient can be discharged from the emergency department, the patient was educated treatments and reasons to return to the emergency department based on their presumed diagnosis as noted above, they were advised to followup with a primary care physician in 2-3 days. Patient was agreeable to plan of care. *Note is created using voice recognition software and may contain spelling, syntax or grammatical errors. - Vital Signs Vital signs: Temp Pulse Resp BP Pulse Ox 97.9 F 101 H 20 129/76 H 98 07/18/18 06:37 07/18/18 06:37 07/18/18 06:37 07/18/18 06:37 07/18/18 06:37 Discharge - Discharge Clinical Impression: Eczema Qualifiers: Eczema type: unspecified Qualified Code(s): L30.9 - Dermatitis, unspecified Condition: Stable Disposition: HOME, SELF-CARE Instructions: Atopic Dermatitis (Eczema) ([facility]) Prescriptions: Prednisone [Deltasone 10 mg Tablet] 10 mg PO ASDIR PRN #60 tablet PRN Reason: Referrals: POLLY KUO MD [Primary Care Provider] - Follow up in 3-5 days ALBERTO RETANA DO [ACTIVE STAFF] - Follow up in 3-5 days (dermatology )
== END 2018-07-18 07:02 | disposition home or self-care (01) ==
LOC: ER 06:29
DX: L30.9 Dermatitis, unspecified (principal); E11.9 Type 2 diabetes mellitus without complications; Z86.14 Personal history of Methicillin resistant Staphylococcus aureus infection
CPT/HCPCS: 99282